=== PATIENT | female | born 1985 | race Caucasian/White ===

== ENCOUNTER 2018-12-05 07:40 | Inpatient (IN) | payer OTHER ==
[2018-12-05] MEDS ORDERED: Ondansetron 4 MG/2 ML SDV IV PRN (08:54)
[2018-12-05] MEDS ORDERED: Sodium Chloride 0.9% 10 ML Syringe FLUSH PRN (08:54)
[2018-12-05] MEDS ORDERED: Lactated Ringers 1,000 ML IV ONE (08:59)
[2018-12-05] MEDS ORDERED: Penicillin G Potassium 5 MILLUNITS in Sodium Chloride 0.9% 50 ML IV ONE (09:15)
[2018-12-05] MEDS ORDERED: Oxytocin 10 Units/1 ML SDV ONE (09:18)
[2018-12-05] MEDS ORDERED: Naloxone 0.4 MG/ML SDV ONE (09:18)
[2018-12-05] MEDS ORDERED: Lidocaine 1% 50 ML MDV ONE (09:19)
[2018-12-05] MEDS ORDERED: ePHEDrine 50 MG/ML SDV ONE (09:19)
[2018-12-05] MEDS ORDERED: Acetaminophen 325 MG Tab, 50 Tab Bulk Bottle PO PRN (10:22)
[2018-12-05] MEDS ORDERED: Lanolin 100% Cream 40 GM Tube TOP PRN (10:22)
[2018-12-05] MEDS ORDERED: Ibuprofen 200 MG Tab, 24 Tab Bulk Bottle PO PRN (10:22)
[2018-12-05] MEDS ORDERED: Docusate Sodium 100 MG Cap PO PRN (10:22)
--- NOTE | 2018-12-05 10:42 | PCM.LDHP ---
L&D History of Present Illness - General Date of Service: 12/05/18 Admit Problem/Dx: Patient Status Order with Admit Dx/Problem 12/05/18 08:54 Patient Status [ADT] Routine 12/05/18 10:23 Patient Status [ADT] Routine Admission Diagnosis/Problem Admission Diagnosis/Problem Vaginal delivery - Related Data Allergies/Adverse Reactions: Allergies Allergy/AdvReac Type Severity Reaction Status Date / Time No Known Allergies Allergy Verified 11/22/18 12:14 Home Medications: Home Meds NIFEdipine [Procardia] 10 mg PO QID #16 cap 11/22/18 [Rx] PNV No.115/Iron Fumarate/FA [ 19 Chewable Tablet] 1 tab PO DAILY [History] glipiZIDE [Glucotrol] 2.5 mg PO BID 11/22/18 [History] H&P Review of Systems - Review of Systems: Review Of Systems: See Below General: Reports: No Symptoms HEENT: Reports: No Symptoms Pulmonary: Reports: No Symptoms Cardiovascular: Reports: No Symptoms Gastrointestinal: Reports: No Symptoms Genitourinary: Reports: No Symptoms Musculoskeletal: Reports: No Symptoms Skin: Reports: No Symptoms Psychiatric: Reports: No Symptoms Neurological: Reports: No Symptoms Hematologic/Lymphatic: Reports: No Symptoms Immunologic: Reports: No Symptoms L&D Exam - Exam Exam: See Below - Vital Signs Vital Signs: Last Vital Signs Temp 36.4 C 12/05/18 07:56 Pulse 115 H 12/05/18 07:56 Resp 20 12/05/18 07:56 BP 126/80 12/05/18 08:00 Pulse Ox Weight: 119.295 kg - OB Specific Contraction Intensity: Strong Movement: Active Heart Tones: Present Heart Rate (FHR) Variability: Moderate (6-25 bmp) Presentation: Vertex - Owen Score Owen Score Cervix Position: Anterior Owen Score Consistency: Soft Owen Score Effacement: >80% Owen Score Dilation: 3-4 cm Owen Score 's Station: -1 ,0 Owen Score Total: 11 - Exam General: Alert, Oriented HEENT: PERRLA, Conjunctiva Clear, EACs Clear, EOMI, Hearing Intact, Mucosa Moist & [place], Nares Patent, Normal Nasal Septum, Posterior Pharynx Clear, TMs Clear Neck: Supple, Trachea Midline Lungs: Clear to Auscultation, Normal Respiratory Effort Cardiovascular: Regular Rate, Regular Rhythm GI/Abdominal Exam: Normal Bowel Sounds, Soft, Non-Tender, No Organomegaly, No Distention, No Abnormal Bruit, No Mass, Pelvis Stable Rectal Exam: Normal Exam, Normal Rectal Tone Genitourinary: Normal external exam, Normal bimanual exam, Normal speculum exam Back Exam: Normal Inspection, Full Range of Motion Extremities: Normal Inspection, Normal Range of Motion, Non-Tender, No Pedal Edema, Normal Capillary Refill Skin: Warm, Dry, Intact Neurological: Cranial Nerves Intact, Reflexes Equal Bilateral Psychiatric: Alert, Normal Affect, Normal Mood - Patient Data Lab Results Last 24 hrs: Laboratory Results - last 24 hr 12/05/18 12/05/18 12/05/18 Range/Units 07:46 07:48 08:47 WBC 12.8 H (4.5-11.0) K/uL RBC 4.03 (3.30-5.50) M/uL Hgb 11.2 L (12.0-15.0) g/dL Hct 35.3 L (36.0-48.0) % MCV 88 (80-98) fL MCH 28 (27-31) pg MCHC 32 (32-36) % Plt Count 202 (150-400) K/uL Urine Color Yellow Urine Appearance Cloudy Urine pH 7.0 (4.5-8.0) Ur Specific [place] 1.005 L (1.008-1.030) Urine Protein Trace (NEGATIVE) mg/dL Urine Glucose (UA) Normal (NEGATIVE) mg/dL Urine Ketones Negative (NEGATIVE) mg/dL Urine Occult Blood Large (NEGATIVE) Urine Nitrite Negative (NEGATIVE) Urine Bilirubin Negative (NEGATIVE) Urine Urobilinogen Normal (NORMAL) mg/dL Ur Leukocyte Esterase Negative (NEGATIVE) Urine RBC 50-75 H (0-5) Urine WBC Not seen (0-5) Ur Epithelial Cells Moderate Amorphous Sediment Not seen Urine Bacteria Few Urine Mucus Not seen Membrane Rupture Positive H (NEGATIVE) Result Diagrams: 12/05/18 08:47 - Problem List (1) Positive GBS test SNOMED Code(s): 0721912481925, 3535613413021 ICD Code: B95.1 - STREPTOCOCCUS, GROUP B, CAUSING DISEASES CLASSD ELSWHR Status: Acute Current Visit: Yes (2) 37 weeks gestation of SNOMED Code(s): 52819629 ICD Code: Z3A.37 - 37 WEEKS GESTATION OF Status: Acute Current Visit: Yes (3) Labor established SNOMED Code(s): 33327715 ICD Code: FSW2255 - Status: Acute Current Visit: Yes (4) SROM (spontaneous rupture of membranes) SNOMED Code(s): 553635727 ICD Code: [id number] - Status: Acute Current Visit: Yes (5) Gestational diabetes SNOMED Code(s): 37773017 ICD Code: O24.419 - GESTATIONAL DIABETES MELLITUS IN , UNSP CONTROL Status: Acute Current Visit: No Qualifiers: Gestational diabetes mellitus control: oral hypoglycemic-controlled Trimester: third trimester Qualified Code(s): O24.415 - Gestational diabetes mellitus in , controlled by oral hypoglycemic drugs (6) SNOMED Code(s): 52918530 ICD Code: Z34.90 - ENCNTR FOR SUPRVSN OF NORMAL , UNSP, UNSP TRIMESTER Status: Acute Current Visit: No Qualifiers: Weeks of gestation: 37 weeks Qualified Code(s): Z3A.37 - 37 weeks gestation of Problem List Initiated/Reviewed/Updated: Yes Orders Last 24hrs: Active Orders 24 hr Category Date Time Status Patient Status [ADT] Routine ADT 12/05/18 08:54 Active Patient Status [ADT] Routine ADT 12/05/18 10:23 Active Ambulate [RC] PER UNIT ROUTINE Care 12/05/18 08:54 Active Communication Order [RC] ASDIRECTED Care 12/05/18 08:54 Active Communication Order [RC] Per Unit Routine Care 12/05/18 08:59 Active Dietary Supplements [RC] BIDMEALS Care 12/05/18 08:52 Active Heart Tones [RC] PER UNIT ROUTINE Care 12/05/18 08:54 Active Non Stress Test [RC] Click to Edit Care 12/05/18 08:54 Active Insert Urinary Catheter [OM.PC] ASDIRECTED Care 12/05/18 09:00 Ordered Local Anesthetic Infusion Pump [RC] ASDIRECTED Care 12/05/18 08:59 Active May Shower [RC] ASDIRECTED Care 12/05/18 10:22 Active Notify Provider Vital Signs [RC] PRN Care 12/05/18 08:54 Active Notify Provider [RC] PRN Care 12/05/18 08:54 Active OB Check [OM.PC] Click to Edit Care 12/05/18 07:47 Ordered PCEA Epidural [RC] ASDIRECTED Care 12/05/18 08:59 Active PCEA Epidural [RC] ASDIRECTED Care 12/05/18 08:59 Active Up ad Bridgette [RC] ASDIRECTED Care 12/05/18 08:54 Active Up to Chair [RC] QID Care 12/05/18 08:54 Active Urinary Catheter Assessment [RC] ASDIRECTED Care 12/05/18 08:59 Active VTE/DVT Education [RC] Click to Edit Care 12/05/18 08:58 Active Verify Patient Consent Obtain [RC] ASDIRECTED Care 12/05/18 08:59 Active Vital Signs [RC] PER UNIT ROUTINE Care 12/05/18 08:54 Active Vital Signs [RC] PFP Care 12/05/18 10:23 Active Regular Diet [DIET] Diet 12/05/18 Breakfast Active Acetaminophen [Tylenol Bulk Bottle] Med 12/05/18 10:22 Ordered 325 mg PO Q4H PRN Docusate Sodium [Colace] Med 12/05/18 10:22 Ordered 100 mg PO BID PRN Ibuprofen [Motrin Bulk Bottle] Med 12/05/18 10:22 Ordered 600 mg PO Q6H PRN Lanolin [Lansinoh HPA] Med 12/05/18 10:22 Ordered 40 gm TOP ASDIRECTED PRN Ondansetron [Zofran] Med 12/05/18 08:54 Active 4 mg IV Q4H PRN Sodium Chloride 0.9% [Saline Flush] Med 12/05/18 08:54 Active 10 ml FLUSH ASDIRECTED PRN Assess Lochia [WOMSER] Per Unit Routine Oth 12/05/18 10:22 Ordered Assess Uterine Involution [WOMSER] Per Unit Routine Oth 12/05/18 10:22 Ordered DVT/VTE Prophylaxis Reflex [OM.PC] Routine Oth 12/05/18 08:54 Ordered Epidural Catheter Management [OM.PC] Urgent Oth 12/05/18 08:59 Ordered Ice Therapy [OM.PC] Per Unit Routine Oth 12/05/18 10:24 Ordered Perineal Care [OM.PC] Per Unit Routine Oth 12/05/18 10:24 Ordered Saline Lock Insert [OM.PC] Routine Oth 12/05/18 08:54 Ordered Resuscitation Status Routine Resus Stat 12/05/18 08:54 Ordered Medication Orders Acetaminophen (Tylenol Bulk Bottle) 325 mg PO Q4H PRN PRN Reason: Pain Docusate Sodium (Colace) 100 mg PO BID PRN PRN Reason: Constipation Emollient Ointment (Lansinoh Hpa) 40 gm TOP ASDIRECTED PRN PRN Reason: Sore Nipples Ibuprofen (Motrin Bulk Bottle) 600 mg PO Q6H PRN PRN Reason: Pain Ondansetron HCl (Zofran) 4 mg IV Q4H PRN PRN Reason: Nausea/Vomiting Sodium Chloride (Saline Flush) 10 ml FLUSH ASDIRECTED PRN PRN Reason: Keep Vein Open Assessment/Plan Comment:: 12/05/2018 33 yo here after SROM at home at 0630 SVE-3/90/-1 Gestational diabetes-on oral hypoglycemic History of PTL with this GBS positive Plan- Continue to monitor labor Continue to monitor FHTs PCN G per protocol for GBS Epidural for pain control Plan and anticipate a vaginal delivery
--- NOTE | 2018-12-05 10:56 | PCM.DEL ---
L & D Note - General Info Date of Service: 12/05/18 Mother's Due Date: 12/23/18 - Delivery Note Labor: Spontaneous Delivery Outcome: Livebirth Infant Delivery Method: Spontaneous Vaginal Delivery-Single Infant Delivery Mode: Spontaneous Presentation: Left Occiput Anterior (JEAN-PIERRE) Nuchal Cord: Present (times two) Anesthesia Type: None Amniotic Fluid Description: Clear Episiotomy Type: None Laceration: None Placenta: Intact, Spontaneous Cord: 3 Vessels Resuscitation Needed: No Dowell: Bulb Syringe, Stimulated, Warmed, [place] Used Score 1 min: 8 Score 5 min: 9 Second Stage Interventions: Reports: Encouragement Given, Pushing Effectively, Pushing, McRobert's Position Delivery Comments (Free Text/Narrative):: 12/05/2018 33 yo at 37 3/7 gestational weeks delivered a viable male infant at 1004 on 12/05/2018 in JEAN-PIERRE position over and intact perineum. Patient progressed very quickly and before epidural could be placed began pushing. Patient ineffectively pushed through a view contractions before head delivered, patient then placed legs in [place] and pushed effectively the shoulders out. Infant did have a nuchal times two, was able to reduce one time and then somersaulted through the next nuchal cord. was then placed on prewarmed blanket on mother abdomen, infant was dried, stimulated, and began to cry vigorously and pink in color. Delayed cord clamping was done for approximately 90 seconds, before cord was double clamped and cut by father of the . was then brought up and skin to skin with mother. APGARS-8/9, weight 7lbs 10oz, length-20.2 inches. Placenta came spontaneous, intact, EBL-350ml, Infant now skin to skin with mother and both stable in labor and delivery room. Stages- [id number] - General Info Date of Service: 12/05/18 - Review of Systems General: Reports: No Symptoms HEENT: Reports: No Symptoms Pulmonary: Reports: No Symptoms Cardiovascular: Reports: No Symptoms Gastrointestinal: Reports: No Symptoms Genitourinary: Reports: No Symptoms Musculoskeletal: Reports: No Symptoms Skin: Reports: No Symptoms Neurological: Reports: No Symptoms Psychiatric: Reports: No Symptoms - Patient Data Vitals - Most Recent: Last Vital Signs Temp 36.4 C 12/05/18 07:56 Pulse 115 H 12/05/18 07:56 Resp 20 12/05/18 07:56 BP 126/80 12/05/18 08:00 Pulse Ox Weight - Most Recent: 119.295 kg Lab Results Last 24 Hours: Laboratory Results - last 24 hr 12/05/18 12/05/18 12/05/18 Range/Units 07:46 07:48 08:47 WBC 12.8 H (4.5-11.0) K/uL RBC 4.03 (3.30-5.50) M/uL Hgb 11.2 L (12.0-15.0) g/dL Hct 35.3 L (36.0-48.0) % MCV 88 (80-98) fL MCH 28 (27-31) pg MCHC 32 (32-36) % Plt Count 202 (150-400) K/uL Urine Color Yellow Urine Appearance Cloudy Urine pH 7.0 (4.5-8.0) Ur Specific [place] 1.005 L (1.008-1.030) Urine Protein Trace (NEGATIVE) mg/dL Urine Glucose (UA) Normal (NEGATIVE) mg/dL Urine Ketones Negative (NEGATIVE) mg/dL Urine Occult Blood Large (NEGATIVE) Urine Nitrite Negative (NEGATIVE) Urine Bilirubin Negative (NEGATIVE) Urine Urobilinogen Normal (NORMAL) mg/dL Ur Leukocyte Esterase Negative (NEGATIVE) Urine RBC 50-75 H (0-5) Urine WBC Not seen (0-5) Ur Epithelial Cells Moderate Amorphous Sediment Not seen Urine Bacteria Few Urine Mucus Not seen Membrane Rupture Positive H (NEGATIVE) Med Orders - Current: Current Medications Acetaminophen (Tylenol Bulk Bottle) 325 mg PO Q4H PRN PRN Reason: Pain Docusate Sodium (Colace) 100 mg PO BID PRN PRN Reason: Constipation Emollient Ointment (Lansinoh Hpa) 40 gm TOP ASDIRECTED PRN PRN Reason: Sore Nipples Ibuprofen (Motrin Bulk Bottle) 600 mg PO Q6H PRN PRN Reason: Pain Ondansetron HCl (Zofran) 4 mg IV Q4H PRN PRN Reason: Nausea/Vomiting Sodium Chloride (Saline Flush) 10 ml FLUSH ASDIRECTED PRN PRN Reason: Keep Vein Open Discontinued Medications Ephedrine Sulfate (Ephedrine Sulfate) Confirm Administered Dose 50 mg .ROUTE .STK-MED ONE Stop: 12/05/18 09:20 Penicillin G Potassium 5 (millunits/ Sodium Chloride) 50 mls @ 100 mls/hr IV ONETIME ONE Stop: 12/05/18 09:44 Last Admin: 12/05/18 09:06 Dose: 100 mls/hr Lactated Ringer's (Ringers, Lactated) 1,000 mls @ 999 mls/hr IV ONETIME ONE Stop: 12/05/18 09:59 Last Admin: 12/05/18 09:41 Dose: 999 mls/hr Oxytocin/Sodium Chloride (Pitocin In Ns 20 Units/1,000 Ml) Confirm Administered Dose 20 unit in 1,000 mls @ as directed .ROUTE .STK-MED ONE Stop: 12/05/18 09:20 Lidocaine HCl (Xylocaine 1%) Confirm Administered Dose 100 ml .ROUTE .STK-MED ONE Stop: 12/05/18 09:20 Naloxone HCl (Narcan) Confirm Administered Dose 0.4 mg .ROUTE .STK-MED ONE Stop: 12/05/18 09:19 Oxytocin (Pitocin) Confirm Administered Dose 10 unit .ROUTE .STK-MED ONE Stop: 12/05/18 09:19 - Exam General: Alert, Oriented, Cooperative HEENT: Pupils Equal, Pupils Reactive, EOMI, Mucous Membr. Moist/[place] Neck: Supple Lungs: Clear to Auscultation, Normal Respiratory Effort Cardiovascular: Regular Rate, Regular Rhythm, No Murmurs GI/Abdominal Exam: Normal Bowel Sounds, Soft, Non-Tender, No Organomegaly, No Distention, No Abnormal Bruit, No Mass, Pelvis Stable (Female) Exam: Normal External Exam, Normal Speculum Exam, Normal Bimanual Exam, Enlarged Uterus, Vaginal Bleeding Back Exam: Normal Inspection, Full Range of Motion Extremities: Normal Inspection, Normal Range of Motion, Non-Tender, No Pedal Edema, Normal Capillary Refill Skin: Warm, Dry, Intact Neurological: No New Focal Deficit Psy/Mental Status: Alert, Normal Affect, Normal Mood - Problem List & Annotations (1) Positive GBS test SNOMED Code(s): 5115529079792, 6404576195156 Code(s): B95.1 - STREPTOCOCCUS, GROUP B, CAUSING DISEASES CLASSD ELSWHR Status: Acute Current Visit: Yes (2) 37 weeks gestation of SNOMED Code(s): 44055007 Code(s): Z3A.37 - 37 WEEKS GESTATION OF Status: Acute Current Visit: Yes (3) Labor established SNOMED Code(s): 57114780 Code(s): JIM8598 - Status: Acute Current Visit: Yes (4) SROM (spontaneous rupture of membranes) SNOMED Code(s): 544194155 Code(s): POO7345 - Status: Acute Current Visit: Yes (5) Gestational diabetes SNOMED Code(s): 15874883 Code(s): O24.419 - GESTATIONAL DIABETES MELLITUS IN , UNSP CONTROL Status: Acute Current Visit: No Qualifiers: Gestational diabetes mellitus control: oral hypoglycemic-controlled Trimester: third trimester Qualified Code(s): O24.415 - Gestational diabetes mellitus in , controlled by oral hypoglycemic drugs (6) SNOMED Code(s): 06556424 Code(s): Z34.90 - ENCNTR FOR SUPRVSN OF NORMAL , UNSP, UNSP TRIMESTER Status: Acute Current Visit: No Qualifiers: Weeks of gestation: 37 weeks Qualified Code(s): Z3A.37 - 37 weeks gestation of - Problem List Review Problem List Initiated/Reviewed/Updated: Yes - My Orders Last 24 Hours: My Active Orders 12/05/18 07:47 OB Check [OM.PC] Click to Edit 12/05/18 08:52 Dietary Supplements [RC] BIDMEALS 12/05/18 08:54 Patient Status [ADT] Routine Ambulate [RC] PER UNIT ROUTINE Communication Order [RC] ASDIRECTED Heart Tones [RC] PER UNIT ROUTINE Non Stress Test [RC] Click to Edit Notify Provider Vital Signs [RC] PRN Notify Provider [RC] PRN Up ad Bridgette [RC] ASDIRECTED Up to Chair [RC] QID Vital Signs [RC] PER UNIT ROUTINE Ondansetron [Zofran] 4 mg IV Q4H PRN Sodium Chloride 0.9% [Saline Flush] 10 ml FLUSH ASDIRECTED PRN DVT/VTE Prophylaxis Reflex [OM.PC] Routine Saline Lock Insert [OM.PC] Routine Resuscitation Status Routine 12/05/18 08:58 VTE/DVT Education [RC] Click to Edit 12/05/18 08:59 Communication Order [RC] Per Unit Routine Local Anesthetic Infusion Pump [RC] ASDIRECTED PCEA Epidural [RC] ASDIRECTED PCEA Epidural [RC] ASDIRECTED Urinary Catheter Assessment [RC] ASDIRECTED Verify Patient Consent Obtain [RC] ASDIRECTED Epidural Catheter Management [OM.PC] Urgent 12/05/18 09:00 Insert Urinary Catheter [OM.PC] ASDIRECTED 12/05/18 10:22 May Shower [RC] ASDIRECTED Acetaminophen [Tylenol Bulk Bottle] 325 mg PO Q4H PRN Docusate Sodium [Colace] 100 mg PO BID PRN Ibuprofen [Motrin Bulk Bottle] 600 mg PO Q6H PRN Lanolin [Lansinoh HPA] 40 gm TOP ASDIRECTED PRN Assess Lochia [WOMSER] Per Unit Routine Assess Uterine Involution [WOMSER] Per Unit Routine 12/05/18 10:23 Patient Status [ADT] Routine Vital Signs [RC] PFP 12/05/18 10:24 Ice Therapy [OM.PC] Per Unit Routine Perineal Care [OM.PC] Per Unit Routine 12/05/18 Breakfast Regular Diet [DIET] - Assessment Assessment:: 33 yo G4 now P4 without complications GDM GBS positive -pumping exclusively Labs- A positive, Hep B neg, Hep C neg, HIV neg, RPR nonreactive, Rubella Immune , GBS positive - Plan Plan:: 12/05/2018 33 yo here after SROM at home at 0630 SVE-3/90/-1 Gestational diabetes-on oral hypoglycemic History of PTL with this GBS positive Plan- Continue to monitor labor Continue to monitor FHTs PCN G per protocol for GBS Epidural for pain control Plan and anticipate a vaginal delivery
[2018-12-05] MEDS ORDERED: Oxytocin 10 Units/1 ML SDV IM ONE (11:27)
--- NOTE | 2018-12-05 13:23 | ANES ---
DATE OF SERVICE: 12/05/2018 INDICATION: Yue is a 33-year-old female patient on our Obstetric Unit with Farzana Foresman. I was requested to assess the patient for labor epidural. Upon arrival, I found an obese female. I discussed with her her history, as well as the procedure and risks and benefits. She was okay to proceed and found no contraindication to procedure, after reviewing lab work as well. A 500 mL bolus had been given. TECHNIQUE: I had her seated at the edge of the bed. Betadine prep x3 to lumbar region. Sterile drape was placed, 1% lidocaine skin wheal as well as deep at the L3-L4 region. After the second attempt and repositioning the patient, the patient felt like she had to push, and we halted the procedure and placed her in a supine position for delivery. Nurses had checked and verified that the head was in position for delivery; so again, we halted the epidural procedure. I reported off to the nurse what I had done, which is only the local anesthetic in two attempts. Vitals remained within normal limits. Darshan Dinero CRNA /[id number]
--- NOTE | 2018-12-05 17:57 | PCM.PNPP ---
- General Info Date of Service: 12/05/18 - Review of Systems General: Reports: No Symptoms HEENT: Reports: No Symptoms Pulmonary: Reports: No Symptoms Cardiovascular: Reports: No Symptoms Gastrointestinal: Reports: No Symptoms Genitourinary: Reports: No Symptoms Musculoskeletal: Reports: No Symptoms Skin: Reports: No Symptoms Neurological: Reports: No Symptoms Psychiatric: Reports: No Symptoms - General Info Date of Service: 12/05/18 - Patient Data Vital Signs - Most Recent: Last Vital Signs Temp 37.1 C 12/05/18 14:32 Pulse 81 12/05/18 14:32 Resp 18 12/05/18 14:32 BP 123/57 L 12/05/18 14:32 Pulse Ox 98 12/05/18 14:32 Weight - Most Recent: 119.295 kg Lab Results - Last 24 Hours: Laboratory Results - last 24 hr 12/05/18 12/05/18 12/05/18 Range/Units 07:46 07:48 08:47 WBC 12.8 H (4.5-11.0) K/uL RBC 4.03 (3.30-5.50) M/uL Hgb 11.2 L (12.0-15.0) g/dL Hct 35.3 L (36.0-48.0) % MCV 88 (80-98) fL MCH 28 (27-31) pg MCHC 32 (32-36) % Plt Count 202 (150-400) K/uL Urine Color Yellow Urine Appearance Cloudy Urine pH 7.0 (4.5-8.0) Ur Specific [place] 1.005 L (1.008-1.030) Urine Protein Trace (NEGATIVE) mg/dL Urine Glucose (UA) Normal (NEGATIVE) mg/dL Urine Ketones Negative (NEGATIVE) mg/dL Urine Occult Blood Large (NEGATIVE) Urine Nitrite Negative (NEGATIVE) Urine Bilirubin Negative (NEGATIVE) Urine Urobilinogen Normal (NORMAL) mg/dL Ur Leukocyte Esterase Negative (NEGATIVE) Urine RBC 50-75 H (0-5) Urine WBC Not seen (0-5) Ur Epithelial Cells Moderate Amorphous Sediment Not seen Urine Bacteria Few Urine Mucus Not seen Membrane Rupture Positive H (NEGATIVE) Med Orders - Current: Current Medications Acetaminophen (Tylenol Bulk Bottle) 325 mg PO Q4H PRN PRN Reason: Pain Last Admin: 12/05/18 12:34 Dose: 1 bottle Docusate Sodium (Colace) 100 mg PO BID PRN PRN Reason: Constipation Emollient Ointment (Lansinoh Hpa) 40 gm TOP ASDIRECTED PRN PRN Reason: Sore Nipples Last Admin: 12/05/18 12:34 Dose: 1 bottle Ibuprofen (Motrin Bulk Bottle) 600 mg PO Q6H PRN PRN Reason: Pain Last Admin: 12/05/18 12:34 Dose: 1 bottle Ondansetron HCl (Zofran) 4 mg IV Q4H PRN PRN Reason: Nausea/Vomiting Sodium Chloride (Saline Flush) 10 ml FLUSH ASDIRECTED PRN PRN Reason: Keep Vein Open Discontinued Medications Ephedrine Sulfate (Ephedrine Sulfate) Confirm Administered Dose 50 mg .ROUTE .[facility]-MED ONE Stop: 12/05/18 09:20 Last Admin: 12/05/18 11:06 Dose: Not Given Penicillin G Potassium 5 (millunits/ Sodium Chloride) 50 mls @ 100 mls/hr IV ONETIME ONE Stop: 12/05/18 09:44 Last Admin: 12/05/18 09:06 Dose: 100 mls/hr Lactated Ringer's (Ringers, Lactated) 1,000 mls @ 999 mls/hr IV ONETIME ONE Stop: 12/05/18 09:59 Last Admin: 12/05/18 09:41 Dose: 999 mls/hr Oxytocin/Sodium Chloride (Pitocin In Ns 20 Units/1,000 Ml) Confirm Administered Dose 20 unit in 1,000 mls @ as directed .ROUTE .[facility]-MED ONE Stop: 12/05/18 09:20 Last Admin: 12/05/18 11:06 Dose: Not Given Lidocaine HCl (Xylocaine 1%) Confirm Administered Dose 100 ml .ROUTE .[facility]-MED ONE Stop: 12/05/18 09:20 Last Admin: 12/05/18 11:06 Dose: Not Given Naloxone HCl (Narcan) Confirm Administered Dose 0.4 mg .ROUTE .[facility]-MED ONE Stop: 12/05/18 09:19 Last Admin: 12/05/18 11:06 Dose: Not Given Oxytocin (Pitocin) Confirm Administered Dose 10 unit .ROUTE .[facility]-MED ONE Stop: 12/05/18 09:19 Last Admin: 12/05/18 12:33 Dose: Not Given Oxytocin (Pitocin) 10 unit IM ONETIME ONE Stop: 12/05/18 11:28 Last Admin: 12/05/18 10:10 Dose: 10 unit - Interaction Disposition, : to Nursery Interaction: To Nursery to Visit - Recovery Exam Fundal Tone: Firm Fundal Level: 1 Fingerbreadths Below Umbilicus Lochia Amount: Moderate Lochia Color: Rubra/Red Perineum Description: Intact, Minimal Bruising/Swelling Episiotomy/Laceration: None Bladder Status: Voiding - Exam General: Alert, Oriented HEENT: Pupils Equal Neck: Supple Lungs: Clear to Auscultation, Normal Respiratory Effort Cardiovascular: Regular Rate, Regular Rhythm GI/Abdominal Exam: Normal Bowel Sounds, Soft, Non-Tender, No Organomegaly, No Distention, No Abnormal Bruit, No Mass, Pelvis Stable Extremities: Normal Inspection, Normal Range of Motion, Non-Tender, No Pedal Edema, Normal Capillary Refill Skin: Warm, Dry, Intact Neurological: No New Focal Deficit Psy/Mental Status: Alert, Normal Affect, Normal Mood - Problem List & Annotations (1) Positive GBS test SNOMED Code(s): 7689896670331, 3687826466281 Code(s): B95.1 - STREPTOCOCCUS, GROUP B, [facility] Status: Acute Current Visit: Yes (2) 37 weeks gestation of SNOMED Code(s): 22391630 Code(s): Z3A.37 - 37 WEEKS GESTATION OF Status: Acute Current Visit: Yes (3) Labor established SNOMED Code(s): 74747891 Code(s): HFE9881 - Status: Acute Current Visit: Yes (4) SROM (spontaneous rupture of membranes) SNOMED Code(s): 415656503 Code(s): LEY5614 - Status: Acute Current Visit: Yes (5) Gestational diabetes SNOMED Code(s): 26991886 Code(s): O24.419 - GESTATIONAL DIABETES MELLITUS IN , UNSP CONTROL Status: Acute Current Visit: No Qualifiers: Gestational diabetes mellitus control: oral hypoglycemic-controlled Trimester: third trimester Qualified Code(s): O24.415 - Gestational diabetes mellitus in , controlled by oral hypoglycemic drugs (6) SNOMED Code(s): 69872240 Code(s): Z34.90 - ENCNTR FOR SUPRVSN OF NORMAL , UNSP, UNSP TRIMESTER Status: Acute Current Visit: No Qualifiers: Weeks of gestation: 37 weeks Qualified Code(s): Z3A.37 - 37 weeks gestation of - Problem List Review Problem List Initiated/Reviewed/Updated: Yes - My Orders Last 24 Hours: My Active Orders 12/05/18 07:47 OB Check [OM.PC] Click To Edit 12/05/18 08:52 Dietary Supplements [RC] BIDMEALS 12/05/18 08:54 Patient Status [ADT] Routine Ambulate [RC] PER UNIT ROUTINE Notify Provider Vital Signs [RC] PRN Notify Provider [RC] PRN Up ad Bridgette [RC] ASDIRECTED Up to Chair [RC] QID Ondansetron [Zofran] 4 mg IV Q4H PRN Sodium Chloride 0.9% [Saline Flush] 10 ml FLUSH ASDIRECTED PRN DVT/VTE Prophylaxis Reflex [OM.PC] Routine Saline Lock Insert [OM.PC] Routine Resuscitation Status Routine 12/05/18 08:58 VTE/DVT Education [RC] Click to Edit 12/05/18 08:59 Epidural Catheter Management [OM.PC] Urgent 12/05/18 09:00 Insert Urinary Catheter [OM.PC] ASDIRECTED 12/05/18 10:22 May Shower [RC] ASDIRECTED Acetaminophen [Tylenol Bulk Bottle] 325 mg PO Q4H PRN Docusate Sodium [Colace] 100 mg PO BID PRN Ibuprofen [Motrin Bulk Bottle] 600 mg PO Q6H PRN Lanolin [Lansinoh HPA] 40 gm TOP ASDIRECTED PRN Assess Lochia [WOMSER] Per Unit Routine Assess Uterine Involution [WOMSER] Per Unit Routine 12/05/18 10:23 Patient Status [ADT] Routine Vital Signs [RC] Q4H 12/05/18 10:24 Ice Therapy [OM.PC] Per Unit Routine Perineal Care [OM.PC] Per Unit Routine 12/05/18 Breakfast Regular Diet [DIET] - Assessment Assessment:: 12/05/2018 33 yo G4 now P4 without complications GDM GBS positive -pumping exclusively Labs- A positive, Hep B neg, Hep C neg, HIV neg, RPR nonreactive, Rubella Immune , GBS positive 12/05/2018 GDM GBS positive Fundus firm and bleeding decreasing Infant being transferred to a NICU so mother requests discharge - Plan Plan:: 12/05/2018 33 yo here after SROM at home at 0630 SVE-/-1 Gestational diabetes-on oral hypoglycemic History of PTL with this GBS positive Plan- Continue to monitor labor Continue to monitor FHTs PCN G per protocol for GBS Epidural for pain control Plan and anticipate a vaginal delivery 12/05/2018 Routine cares Encourage pumping of breastmilk To see me for Visit in six weeks in clinic Discharge home at this time
[2018-12-05] MEDS ORDERED: Witch Hazel Medicated Pads 100/Jar TOP PRN (17:58)
[2018-12-05] MEDS ORDERED: Benzocaine 20% Top Spray 56 GM Bottle TOP SCH (18:30)
== END 2018-12-05 18:43 | disposition home or self-care (01) | DRG 807 ==
LOC: JP.OBCHECK 07:40 → JP.OB 09:01 → OBSVTOIN 10:04
PROVIDERS: ADMIT Advanced Practice Midwife; ATTEND Advanced Practice Midwife
PROC: 10E0XZZ Delivery of Products of Conception, External Approach (ICD-10-PCS; principal; 2018-12-05)
PROC: 00JU3ZZ Inspection of Spinal Canal, Percutaneous Approach (ICD-10-PCS; 2018-12-05)
DX: O69.81X0 Labor and delivery complicated by cord around neck, without compression, not applicable or unspecified (principal); Z37.0 Single live birth; O99.824 Streptococcus B carrier state complicating childbirth; O24.425 Gestational diabetes mellitus in childbirth, controlled by oral hypoglycemic drugs; Z3A.37 37 weeks gestation of pregnancy
CPT/HCPCS: 36415; 59409; 81001; 84112; 85027; 99211; A9270-GY; J2540; J2590; J7050; J7120